=== PATIENT | female | born 1990 | race African-American/Black ===

== ENCOUNTER 2016-04-16 13:48 | Emergency (ER) | payer SELFPAY ==
[2016-04-16] MEDS ORDERED: LIDOCAINE 2% VISCOUS SOLN 20 ML UDCUP PO ONE (13:54)
[2016-04-16] MEDS ORDERED: MAG HYDROX/AL HYDROX/SIMETH SUSP 30 ML UDCUP PO ONE (13:54)
[2016-04-16] MEDS ORDERED: METOCLOPRAMIDE HCL ORAL SOLN 10 MG/10 ML UDCUP PO ONE (13:54)
--- NOTE | 2016-04-16 13:58 | ER Document Report ---
ED Medical Screen (RME) - General Stated Complaint: CHEST PAIN Mode of Arrival: Ambulatory Information source: Patient Notes: 25-year-old female presents to the emergency department complaining of intermittently persistent mid upper abdomen/epigastric pain over the last 2 days. Reports pain slightly improves after eating. Denies shortness of breath , fever, recent illness. I have greeted and performed a rapid initial assessment of this patient. A comprehensive ED assessment and evaluation of the patient, analysis of test results and completion of the medical decision making process will be conducted by additional ED providers. TRAVEL OUTSIDE OF THE [place] IN LAST 30 DAYS: No - Related Data Allergies/Adverse Reactions: diphenhydramine [From Benadryl] Adverse Reaction (Severe, Verified 04/16/16 13: 56) Penicillins Adverse Reaction (Severe, Verified 04/16/16 13:56) Past Medical History - Social History Chew tobacco use (# tins/day): No Frequency of alcohol use: None Drug Abuse: None Renal/ Medical History: Denies: Hx Peritoneal Dialysis - Immunizations Hx Diphtheria, Pertussis, Tetanus Vaccination: Yes Physical Exam - Vital signs Vitals: Temp Pulse Resp BP Pulse Ox 98.0 F 92 16 123/78 98 04/16/16 13:52 04/16/16 13:52 04/16/16 13:52 04/16/16 13:52 04/16/16 13:52 - General General appearance: Appears well In distress: None - Respiratory Respiratory status: No respiratory distress - Abdominal Tenderness: Tender - Mild tenderness to palpation to mid upper epigastric area Course - Vital Signs Vital signs: Temp Pulse Resp BP Pulse Ox 98.0 F 92 16 123/78 98 04/16/16 13:52 04/16/16 13:52 04/16/16 13:52 04/16/16 13:52 04/16/16 13:52
[2016-04-16 14:53] LABS: APPEARANCE,URINE SLIGHTLY-CLOUDY; BILIRUBIN,URINE NEGATIVE (NEGATIVE); GLUCOSE, URINE NEGATIVE (NEGATIVE); KETONES,URINE NEGATIVE (NEGATIVE); LEUKOCYTE ESTERASE,URINE SMALL (NEGATIVE); NITRITE,URINE NEGATIVE (NEGATIVE); PROTEIN,URINE NEGATIVE (NEGATIVE); URINE SPECIFIC GRAVITY 1.014; UROBILINOGEN,URINE NEGATIVE mg/dL (<2.0)
[2016-04-16 15:04] LABS: ABSOLUTE EOSINOPHILS # (AUTO) 0.1 10^3/uL (0.0-0.6); ABSOLUTE LYMPHOCYTES (AUTO) 2.1 10^3/uL (0.5-4.7); ABSOLUTE MONOCYTES (AUTO) 0.5 10^3/uL (0.1-1.4); BASOPHILS % (AUTO) 0.2 % (0-2); EOSINOPHILS % (AUTO) 1.6 % (0-6); HEMOGLOBIN 11.3 g/dL (12.0-15.5); HGB HCT DIFFERENCE -0.1; LYMPHOCYTES % (AUTO) 26.8 % (13-45); MEAN CORPUSCULAR HEMOGLOBIN 28.1 pg (27.0-33.4); MEAN CORPUSCULAR HGB CONC 33.3 g/dL (32.0-36.0); MEAN CORPUSCULAR VOLUME 85 fl (80-97); MONOCYTES % (AUTO) 7.1 % (3-13); RED BLOOD COUNT 4.02 10^6/uL (3.72-5.28); RED CELL DISTRIBUTION WIDTH 13.2 % (11.5-14.0); SEGMENTED NEUTROPHILS % (AUTO) 64.3 % (42-78); WHITE BLOOD COUNT 7.7 10^3/uL (4.0-10.5)
[2016-04-16 15:27] LABS: ALANINE AMINOTRANSFERASE 16 U/L (9-52); ALBUMIN 4.1 g/dL (3.5-5.0); ALKALINE PHOSPHATASE 71 U/L (38-126); ANION GAP 10 (5-19); ASPARTATE AMINO TRANSFERASE 15 U/L (14-36); BILIRUBIN,TOTAL 0.5 mg/dL (0.2-1.3); BLOOD UREA NITROGEN 12 mg/dL (7-20); CALCIUM 9.6 mg/dL (8.4-10.2); CARBON DIOXIDE 27 mmol/L (22-30); CHLORIDE 103 mmol/L (98-107); CREATININE RESULT 0.74 mg/dL (0.52-1.25); GLUCOSE 94 mg/dL (75-110); LIPASE 182.6 U/L (23-300); POTASSIUM 3.9 mmol/L (3.6-5.0); TOTAL PROTEIN 7.8 g/dL (6.3-8.2)
--- NOTE | 2016-04-16 15:42 | ER Document Report ---
ED GI/ - General Mode of Arrival: Ambulatory Information source: Patient TRAVEL OUTSIDE OF THE [place] IN LAST 30 DAYS: No - HPI Patient complains to provider of: Abdominal pain Associated symptoms: Other - See above <DUANE BEAL - Last Filed: 04/16/16 16:02> <MARCIO BISHOP - Last Filed: 04/16/16 18:04> - General Chief Complaint: Epigastric Pain Stated Complaint: epigastric pain Notes: Patient is a 25 year old female who presents to the emergency department complaining of epigastric abdominal pain onset 2 days ago. Patient reports that the pain is in her upper abdomen and radiates across her sides into her back. Patient reports that the pain is relieved after eating and when she leans forward. Patient also complains of vomiting and lower back pain. Patient states that she has been told in the past she has acid reflux and ulcers, she is currently waiting for her insurance in order to see a accounts adjustable clerk. Patient denies fever, difficulty urinating, and cough. Patient is allergic to penicillin. (DUANE BEAL) - Related Data Allergies/Adverse Reactions: diphenhydramine [From Benadryl] Adverse Reaction (Severe, Verified 04/16/16 13: 56) Penicillins Adverse Reaction (Severe, Verified 04/16/16 13:56) Past Medical History - General Information source: Patient - Social History Smoking Status: Never Smoker Chew tobacco use (# tins/day): No Frequency of alcohol use: None Drug Abuse: None Family History: Reviewed & Not Pertinent Patient has suicidal ideation: No Patient has homicidal ideation: No GI Medical History: Reports: Hx Ulcer - Immunizations Hx Diphtheria, Pertussis, Tetanus Vaccination: Yes <DUANE BEAL - Last Filed: 04/16/16 16:02> Review of Systems - Review of Systems Constitutional: denies: Fever EENT: No symptoms reported Cardiovascular: No symptoms reported Respiratory: denies: Cough Gastrointestinal: See HPI, Abdominal pain, Vomiting Genitourinary: See HPI. denies: Other - Difficulty urinating Female Genitourinary: No symptoms reported Musculoskeletal: See HPI, Back pain Skin: No symptoms reported Hematologic/Lymphatic: No symptoms reported Neurological/Psychological: No symptoms reported -: Yes All other systems reviewed and negative <DUANE BEAL - Last Filed: 04/16/16 16:02> Physical Exam - Vital signs Interpretation: Normal - General General appearance: Appears well, Alert - HEENT Head: Normocephalic, Atraumatic - Respiratory Respiratory status: No respiratory distress Chest status: Nontender Breath sounds: Normal Chest palpation: Normal - Cardiovascular Rhythm: Regular Heart sounds: Normal auscultation Murmur: No - Abdominal Inspection: Normal Distension: No distension Bowel sounds: Normal Tenderness: Tender - epigastric tenderness to palption Organomegaly: No organomegaly - Back Back: Normal, Nontender - Extremities General upper extremity: Normal inspection General lower extremity: Normal inspection - Neurological Neuro grossly intact: Yes Cognition: Normal Orientation: AAOx4 Amanda Coma Scale Eye Opening: Spontaneous Amanda Coma Scale Verbal: Oriented Lamar Coma Scale Motor: Obeys Commands Amanda Coma Scale Total: 15 Speech: Normal - Psychological Associated symptoms: Normal affect, Normal mood - Skin Skin Temperature: Warm Skin Moisture: Dry Skin Color: Normal <DUANE BEAL - Last Filed: 04/16/16 16:02> Course - Laboratory Result Diagrams: 04/16/16 14:30 04/16/16 14:30 <DUANE BEAL - Last Filed: 04/16/16 16:02> - Laboratory Result Diagrams: 04/16/16 14:30 04/16/16 14:30 <MARCIO BISHOP - Last Filed: 04/16/16 18:04> - Re-evaluation Re-evalutation: 04/16/16 Patient with epigastric pain. Will be given therapy for what is likely ulcer. Patient is to follow-up with gastroenterology when she has health insurance. Blood work within normal limits. Nonsurgical abdomen. Stable for discharge. ( MARCIO BISHOP) - Vital Signs Vital signs: Temp Pulse Resp BP Pulse Ox 98.7 F 83 14 125/89 H 97 04/16/16 16:08 04/16/16 16:08 04/16/16 16:08 04/16/16 16:08 04/16/16 16:08 (DUANE BEAL) (MARCIO BISHOP) - Laboratory Laboratory results interpreted by me: 04/16/16 04/16/16 14:10 14:30 Hgb 11.3 L Hct 34.0 L Urine Blood MODERATE H Ur Leukocyte Esterase SMALL H (DUANE BEAL) (MARCIO BISHOP) Discharge <DUANE BEAL - Last Filed: 04/16/16 16:02> <MARCIO BISHOP - Last Filed: 04/16/16 18:04> - Discharge Clinical Impression: Epigastric pain, Probable gastritis/PUD Condition: Stable Disposition: HOME, SELF-CARE Instructions: Abdominal Pain ([facility]), Ulcer ([facility]), Gastroenterology, Gastritis ( [facility]) Prescriptions: Clarithromycin 500 mg PO BID #20 tablet Metronidazole [Flagyl 500 mg Tablet] 500 mg PO BID #20 tablet Omeprazole 20 mg PO BID #20 capsule. Sucralfate [Carafate 1 gm Tablet] 1 gm PO ACHS #120 tablet Forms: Return to Work Scribe Attestation: 04/16/16 18:04 I personally performed the services described in the documentation, reviewed and edited the documentation which was dictated to the scribe in my presence, and it accurately records my words and actions. (MARCIO BISHOP) Scribe Documentation - Scribe Written by Sandra:: sandra Fermin, 04/16/16, [id number] acting as scribe for :: Salome <DUANE BEAL - Last Filed: 04/16/16 16:02>
[2016-04-16 16:14] VITALS: BP 125/89
--- NOTE | 2016-04-16 18:00 | EKG REPORT ---
SEVERITY:- NORMAL ECG - SINUS RHYTHM : Confirmed by: Larisa Purvis 16-Apr-2016 18:00:11
== END 2016-04-16 16:08 | disposition home or self-care (01) ==
LOC: ER 13:48
DX: R10.13 Epigastric pain (principal); R11.10 Vomiting, unspecified; M54.5 Low back pain; Z87.19 Personal history of other diseases of the digestive system
CPT/HCPCS: 93005; 99284; 36415; 83690; 85025; 81025; 80053; 81001; 93010; J3490